=== PATIENT | male | born 1970 | race Caucasian/White ===

== ENCOUNTER 2017-09-09 14:57 | Emergency (ER) | payer OTHER ==
[2017-09-09 15:02] VITALS: BP 151/96; PULSE 80; TEMP 98.5; BMI 37.5
[2017-09-09] MEDS ORDERED: TETRACAINE 0.5% OPHTH SOLN 2 ML BOTTLE ONE (15:15)
[2017-09-09] MEDS ORDERED: FLUORESCEIN NA 1 EA STRIP ONE (15:15)
[2017-09-09] MEDS ORDERED: IBUPROFEN 600 MG TABLET (FP) PO ONE ×2 (15:49→15:53)
--- NOTE | 2017-09-09 15:52 | PDOC ---
History of Present Illness - General History Source: Patient Exam Limitations: No Limitations <Safia Ghotra - Last Filed: 09/09/17 15:46> - General History Source: Patient, Old Records Exam Limitations: No Limitations - History of Present Illness Initial Comments: 09/09/17 15:53 The patient is a 47 year old male, accompanied by family, with no significant past medical history who presents to the emergency department with right eye pain, erythema, and edema for 1 day. The patient states that on Monday he was working when he felt a pebble fly into his eye. The patient states that he is sure it was a pebble because he saw it when his daughter took it out. The patient reports feeling like there is still something in his eye and notes his irritation is exacerbated by light. The patient denies wearing contacts (he wears glasses). The patient does not have any other complaints at this time. <Octavio Lincoln - Last Filed: 09/09/17 15:54> - General Chief Complaint: Eye Problem Stated Complaint: right eye burning Past History - Past Medical History Anemia: No Asthma: No Cancer: No Cardiac Disorders: No CVA: No COPD: No CHF: No Dementia: No Diabetes: No GI Disorders: Yes (PEPTIC ULCER,PYLORIC GASTRITIS) Disorders: No HTN: Yes Hypercholesterolemia: Yes Kidney Stones: Yes Liver Disease: No Seizures: No Thyroid Disease: No - Surgical History Abdominal Surgery: No Appendectomy: No Cardiac Surgery: No Cholecystectomy: No Lung Surgery: No Neurologic Surgery: No Orthopedic Surgery: Yes (LEFT ELBOW SURGERY) - Suicide/Smoking/Psychosocial Hx Smoking History: Never smoked Have you smoked in the past 12 months: No Hx Alcohol Use: No Drug/Substance Use Hx: No Substance Use Type: None Hx Substance Use Treatment: No <Safia Ghotra - Last Filed: 09/09/17 15:46> <Octavio Lincoln - Last Filed: 09/09/17 15:54> - Past Medical History Allergies/Adverse Reactions: Allergies Allergy/AdvReac Type Severity Reaction Status Date / Time No Known Allergies Allergy Verified 09/09/17 14:58 Home Medications: Ambulatory Orders Propranolol HCl [Inderal Xl] 80 mg PO DAILY 02/04/16 Simvastatin [Zocor -] 20 mg PO DAILY 02/04/16 Omeprazole 20 mg PO DAILY 09/09/17 Polymyxin B Sulfate/Tmp [Polytrim Opthalmic Solution -] 1 drop OP Q3H #1 bottle 09/09/17 Review of Systems - Review of Systems Able to Perform ROS?: Yes Comments:: 09/09/17 15:54 GENERAL/CONSTITUTIONAL: No fever or chills. No weakness. HEAD, EYES, EARS, NOSE AND THROAT: (+) Right eye erythema, edema, and irritation /pain. No ear pain or discharge. No sore throat. GASTROINTESTINAL: No nausea, vomiting, diarrhea or constipation. GENITOURINARY: No dysuria, frequency, or change in urination. CARDIOVASCULAR: No chest pain or shortness of breath. RESPIRATORY: No cough, wheezing, or hemoptysis. MUSCULOSKELETAL: No joint or muscle swelling or pain. No neck or back pain. SKIN: No rash NEUROLOGIC: No headache, vertigo, loss of consciousness, or change in strength/ sensation. ENDOCRINE: No increased thirst. No abnormal weight change. HEMATOLOGIC/LYMPHATIC: No anemia, easy bleeding, or history of blood clots. ALLERGIC/IMMUNOLOGIC: No hives or skin allergy. <Octavio Lincoln - Last Filed: 09/09/17 15:54> *Physical Exam - Vital Signs Last Vital Signs Temp Pulse Resp BP Pulse Ox 98.5 F 80 18 151/96 97 09/09/17 14:58 09/09/17 14:58 09/09/17 14:58 09/09/17 14:58 09/09/17 14:58 <Safia Ghotra - Last Filed: 09/09/17 15:46> - Vital Signs Last Vital Signs Temp Pulse Resp BP Pulse Ox 98.5 F 80 18 151/96 97 09/09/17 14:58 09/09/17 14:58 09/09/17 14:58 09/09/17 14:58 09/09/17 14:58 - Physical Exam Comments: 09/09/17 15:54 GENERAL: Awake, alert, and fully oriented, in no acute distress HEAD: No signs of trauma EYES: (+) Right eye is injected. Green Fluorescence uptake over right cornea ( linear). No foreign body visualized. EOMI ENT: Auricles normal inspection, nares patent, Moist mucosa NECK: Normal ROM, supple, no lymphadenopathy, JVD, or masses LUNGS: Breath sounds equal, clear to auscultation bilaterally. No wheezes, and no crackles HEART: Regular rate and rhythm, normal S1 and S2, no murmurs, rubs or gallops ABDOMEN: Soft, nontender, normoactive bowel sounds. No guarding, no rebound. No masses EXTREMITIES: Normal range of motion, no edema. No clubbing or cyanosis. No cords, erythema, or tenderness NEUROLOGICAL: Normal speech SKIN: Warm, Dry, normal turgor, no rashes or lesions noted. <Octavio Lincoln - Last Filed: 09/09/17 15:54> Medical Decision Making - Medical Decision Making 09/09/17 15:46 47 yo male with foreign body sensatio in eye folllowing rock in his eye 4 days ago. has redness, irritation, light sensitivity. foreign body sensation. no contacts lenses. wears glasses. no blurry vision. on exam right eye injection. small flourescin uptake right cornnea. no foreign body visualized. visual acuity. 40/20 left, 50/20 right. ( pt wearing old glassess, has new prescription which he left at home.) plan: treat for corneal abrasion. dc polytrim opth. motrin. <Safia Ghotra - Last Filed: 09/09/17 15:46> *DC/Admit/Observation/Transfer - Discharge Dispostion Admit: No <Safia Ghotra - Last Filed: 09/09/17 15:46> - Attestations Scribe Attestion: 09/09/17 15:54 Documentation prepared by Octavio Lincoln, acting as medical office receptionist assistant for Safia Ghotra MD. <Octavio Lincoln - Last Filed: 09/09/17 15:54> Diagnosis at time of Disposition: Corneal abrasion - Discharge Dispostion Condition at time of disposition: Stable - Prescriptions Prescriptions: Polymyxin B Sulfate/Tmp [Polytrim Opthalmic Solution -] 1 drop OP Q3H #1 bottle - Referrals Referrals: Rene Gutierrez [Staff Physician] - - Patient Instructions Printed Discharge Instructions: Corneal Abrasion Additional Instructions: use polytrim drops one drop right eye every 3 hours while awake x 10 days. follow up with your doctor. you can take ibuprofen 600 mg every 8 hours as needed for pain. wear sunglassess for light sensitivity. you can follow up with Dr Gutierrez and opthomologist as needed. call monday to schedule appointment.
== END 2017-09-09 16:03 | disposition home or self-care (01) ==
LOC: FER 14:57
DX: S05.01XA Injury of conjunctiva and corneal abrasion without foreign body, right eye, initial encounter (principal); X58.XXXA Exposure to other specified factors, initial encounter; Y93.9 Activity, unspecified; Y92.9 Unspecified place or not applicable
CPT/HCPCS: 99281-25

== ENCOUNTER 2018-02-07 18:02 | Emergency (ER) | payer OTHER ==
[2018-02-07 18:15] VITALS: TEMP 97.5; BMI 39.1
[2018-02-07] MEDS ORDERED: ONDANSETRON *ODT* 4 MG TABLET SL ONE (18:47)
--- NOTE | 2018-02-07 18:48 | PDOC ---
History of Present Illness - General History Source: Patient, Old Records Exam Limitations: No Limitations - History of Present Illness Initial Comments: 02/07/18 19:06 The patient is a 47 year old male with a past medical history of hypertension, hyperlipidemia, and chronic back pain who presents to the Emergency Department with headache and stomach pain since this morning. The patient describes his headache as 10/10 in severity, originating on the right side of his head radiating posteriorly to the back of his head and inferiorly to his neck. He endorses associated nausea, dizziness, ear ringing, weakness, and decrease in appetite secondary to his headache. He notes that his head pain is exacerbated by light. He states that he took motrin today which alleviated his pain, but his pain presented again shortly after. He also reports stomach pain that onset at the same time as his headache. Patient denies dyspnea, fever, chills, cold symptoms, blurry vision,chest pain, and emesis. <Octavio Lincoln - Last Filed: 02/07/18 19:06> <Baron Barth - Last Filed: 02/10/18 08:57> - General Chief Complaint: Headache Stated Complaint: HEADACHE AND DIZZINESS H/O VERTIGO Time Seen by Provider: 02/07/18 18:45 Past History <Octavio Lincoln - Last Filed: 02/07/18 19:06> - Past Medical History Anemia: No Asthma: No Cancer: No Cardiac Disorders: No CVA: No COPD: No CHF: No Dementia: No Diabetes: No GI Disorders: Yes (PEPTIC ULCER,PYLORIC GASTRITIS) Disorders: No HTN: Yes Hypercholesterolemia: Yes Kidney Stones: Yes Liver Disease: No Seizures: No Thyroid Disease: No - Surgical History Abdominal Surgery: No Appendectomy: No Cardiac Surgery: No Cholecystectomy: No Lung Surgery: No Neurologic Surgery: No Orthopedic Surgery: Yes (LEFT ELBOW SURGERY) - Suicide/Smoking/Psychosocial Hx Smoking History: Never smoked Have you smoked in the past 12 months: No Hx Alcohol Use: No Drug/Substance Use Hx: No Substance Use Type: None Hx Substance Use Treatment: No <Baron Barth - Last Filed: 02/10/18 08:57> - Past Medical History Allergies/Adverse Reactions: Allergies Allergy/AdvReac Type Severity Reaction Status Date / Time No Known Allergies Allergy Verified 02/07/18 18:04 Home Medications: Ambulatory Orders Propranolol HCl [Inderal Xl] 80 mg PO DAILY 02/04/16 Simvastatin [Zocor -] 20 mg PO PRN 02/04/16 Acetaminophen/Caffeine/Butalb [Fioricet -] 1 tab PO Q6H PRN #20 tablet MDD 3 Ibuprofen 800 mg PO PRN 02/07/18 Ondansetron [Zofran Odt -] 4 mg SL BID PRN #10 od.tablet 02/07/18 Review of Systems - Review of Systems Able to Perform ROS?: Yes Comments:: CONSTITUTIONAL: Absent: fever, no chills, no fatigue EYES: Absent: visual changes ENT: (+) ear ringing Absent: no sore throat CARDIOVASCULAR: Absent: chest pain, no palpitations RESPIRATORY: Absent: cough, no SOB GI: (+) epigastric pain (+) Nausea Absent: no vomiting, no constipation, no diarrhea GENITOURINARY: Absent: dysuria, no frequency, no hematuria MUSCULOSKELETAL: Absent: back pain, no arthralgia, no myalgia NEURO: (+) Headache, dizziness SKIN: Absent: rash <Octavio Lincoln - Last Filed: 02/07/18 19:06> *Physical Exam - Vital Signs Last Vital Signs Temp Pulse Resp BP Pulse Ox 97.5 F L 60 16 132/56 100 02/07/18 18:03 02/07/18 18:03 02/07/18 18:03 02/07/18 18:03 02/07/18 18:03 - Physical Exam Comments: 02/07/18 19:11 GENERAL: Well-appearing, well-nourished. No apparent distress. HEENT: Normocephalic, atraumatic. PERRL, EOM intact. CARDIOVASCULAR: Normal S1, S2. Regular rate and rhythm. PULMONARY: Clear to auscultation bilaterally. ABDOMEN: Soft, non-distended, non-tender. EXTREMITIES: Normal ROM in all four extremities. No gross deformities. SKIN: Warm, dry. No rash NEUROLOGICAL: No focal neurological deficits. <Octavio Lincoln - Last Filed: 02/07/18 19:06> - Vital Signs Last Vital Signs Temp Pulse Resp BP Pulse Ox 97.5 F L 60 16 132/56 100 02/07/18 18:03 02/07/18 18:03 02/07/18 18:03 02/07/18 18:03 02/07/18 18:03 <Baron Barth - Last Filed: 02/10/18 08:57> ED Treatment Course - Medications Given in the ED: ED Medications Discontinued Medications Generic Name Dose Route Start Last Admin Trade Name Eusebia PRN Reason Stop Dose Admin Ondansetron HCl 4 mg 02/07/18 18:47 02/07/18 18:55 Zofran Odt - SL 02/07/18 18:48 4 mg ONCE ONE Administration <Octavio Lincoln - Last Filed: 02/07/18 19:06> Medical Decision Making - Medical Decision Making 02/10/18 08:55 Patient with a headache and nausea, body aches, probably viral etiology. Medication administered. CT scan pending. Signed out to Dr. Mccray pending imaging results and further evaluation and treatment 7 PM. <Baron Barth - Last Filed: 02/10/18 08:57> *DC/Admit/Observation/Transfer - Attestations Scribe Attestion: 02/07/18 19:11 Documentation prepared by Octavio Lincoln, acting as medical physics teacher for Baron Barth MD. <Octavio Lincoln - Last Filed: 02/07/18 19:06> <Baron Barth - Last Filed: 02/10/18 08:57> Diagnosis at time of Disposition: Headache - Discharge Dispostion Disposition: HOME Condition at time of disposition: Stable - Prescriptions Prescriptions: Acetaminophen/Caffeine/Butalb [Fioricet -] 1 tab PO Q6H PRN #20 tablet MDD 3 PRN Reason: Headache Ondansetron [Zofran Odt -] 4 mg SL BID PRN #10 od.tablet PRN Reason: Nausea - Referrals Referrals: Bernabe Matias MD [Staff Physician] - - Patient Instructions Printed Discharge Instructions: DI for Headache Additional Instructions: Fioricet 1 tablet every 6 hours as needed for headache Zofran ODT 4 mg up to twice a day as needed for nausea Return to ER immediately if you have severe headache or have persistent nausea/ vomiting Follow-up with neurology group (Dr. Matias)
[2018-02-07] MEDS ORDERED: ACETAMINOPHEN WITH CODEINE 300MG/30MG TABLET ONE (18:52)
[2018-02-07] MEDS ORDERED: ONDANSETRON *ODT* 4 MG TABLET ONE (18:53)
[2018-02-07] MEDS ORDERED: ACETAMINOPHEN WITH CODEINE 300MG/30MG TABLET PO ONE (19:47)
--- NOTE | 2018-02-07 20:23 | PDOC ---
*Physical Exam - Vital Signs Last Vital Signs Temp Pulse Resp BP Pulse Ox 97.5 F L 60 16 132/56 100 02/07/18 18:03 02/07/18 18:03 02/07/18 18:03 02/07/18 18:03 02/07/18 18:03 ED Treatment Course - Medications Given in the ED: ED Medications Discontinued Medications Generic Name Dose Route Start Last Admin Trade Name Freq PRN Reason Stop Dose Admin Acetaminophen/Codeine Phosphate 1 tab 02/07/18 19:47 02/07/18 18:55 Tylenol # 3 - PO 02/07/18 19:48 1 tab ONCE ONE Administration Ondansetron HCl 4 mg 02/07/18 18:47 02/07/18 18:55 Zofran Odt - SL 02/07/18 18:48 4 mg ONCE ONE Administration Progress Note - Progress Note Progress Note: Care of this patient received from Dr. Cates. Patient feels significantly better after Tylenol with codeine/Zofran Head CT shows no evidence of acute intracranial process. Patient will be discharged with prescription for Fioricet to be taken up to twice a day as needed for headache and Zofran ODT for nausea. He has not been seen by a neurologist for his headaches and referral information for Dr. Matias group will be given to him. Patient should return to the emergency room if he has severe, persistent pain or develops nausea/vomiting or lightheadedness *DC/Admit/Observation/Transfer Diagnosis at time of Disposition: Headache Qualifiers: Headache type: tension-type Headache chronicity pattern: acute headache Intractability: not intractable Qualified Code(s): G44.209 - Tension-type headache, unspecified, not intractable - Discharge Dispostion Disposition: HOME Condition at time of disposition: Stable - Prescriptions Prescriptions: Acetaminophen/Caffeine/Butalb [Fioricet -] 1 tab PO Q6H PRN #20 tablet MDD 3 PRN Reason: Headache Ondansetron [Zofran Odt -] 4 mg SL BID PRN #10 od.tablet PRN Reason: Nausea - Referrals Referrals: Bernabe Matias MD [Staff Physician] - - Patient Instructions Printed Discharge Instructions: DI for Headache Additional Instructions: Fioricet 1 tablet every 6 hours as needed for headache Zofran ODT 4 mg up to twice a day as needed for nausea Return to ER immediately if you have severe headache or have persistent nausea/ vomiting Follow-up with neurology group (Dr. Matias) - Post Discharge Activity
[2018-02-07 20:46] VITALS: BP 149/99; PULSE 59
== END 2018-02-07 20:47 | disposition home or self-care (01) ==
LOC: FER 18:02
DX: G44.209 Tension-type headache, unspecified, not intractable (principal)
CPT/HCPCS: 70450-TC; 99283-25; Q0162

== ENCOUNTER 2019-06-17 00:34 | Observation (INO) | payer OTHER ==
--- NOTE | 2019-06-17 00:57 | PDOC ---
History of Present Illness - General Chief Complaint: Chest Pain Stated Complaint: CHEST PAIN Time Seen by Provider: 06/17/19 00:37 History Source: Patient Exam Limitations: No Limitations - History of Present Illness Initial Comments: 06/17/19 00:52 This is a 49-year-old male who comes in complaining of several hours of substernal chest pain this evening. However patient said that he has had intermittent chest pain for the last couple of days. Patient said sometimes it is associated with some nausea and diaphoresis. Patient said this evening it was associated with some radiation down his inner arm as well as some shortness of breath. Patient said that the symptoms occurred while at rest. Patient denies history of similar pain other than within the last few days. Patient said that he did have a cardiac evaluation a number years ago however nothing within the last few years. Patient has a number risk factors including hypertension, high cholesterol and obesity. Patient denies any pain at this time or any associated symptoms. Patient does not take an aspirin a day. Allergies: as per nursing notes Past Medical History: none Social history: Lives with family. No smoking. No alcohol. No illicit drugs. Surgical history: None General: No fevers or chills, no weakness, no weight loss HEENT: No change in vision. No sore throat,. No ear pain CardioVascular: + chest discomfort. No shortness of breath Respiratory:No cough, or wheezing. Gastrointestinal: no nausea, vomiting, diarrhea or constipation, No rectal bleeding Genitourinary: No dysuria, hematuria, or frequency Musculoskeletal: No joint or muscle pain or swelling Neurologic: No headache, vertigo, dizziness or loss of consciousness Psychiatric: nor depression Skin: No rashes or easy bruising Endocrine: no increased thirst or abnormal weight change Allergic: no skin or latex allergy All other systems reviewed and normal Exam: General: Well-nourished well-developed individual, no acute distress HEENT: Throat: Normal, tonsils normal, no erythema or exudate Neck: Supple, no meningeal signs, no lymphadenopathy Eyes::Pupils equal reactive and round, extraocular motion intact Chest: Nontender to palpation Cardiac: S1-S2 normal, regular rate and rhythm, no murmurs rubs or gallops Respiratory: Lungs clear to auscultation bilateral Abdomen: Soft, nondistended, normal bowel sounds, there is no tenderness on palpation diffusely Extremities: Warm, dry, no cyanosis, clubbing, or edema Skin: No rashes Neuro: Alert and oriented x3, CN II - XII intact, nonfocal exam with normal strength, normal sensation, normal reflexes, normal gait, Psych: Normal mood and affect Assessment and plan: This is a 49-year-old male with multiple cardiac risk factors who comes in complaining of intermittent chest pain 2 days. Patient is pain-free at this time. Workup initiated including CBC, comp, chest x-ray and cardiac enzymes and EKG. Patient given aspirin. Patient's heart score is 4 so he will be admitted to an observation bed Past History - Past Medical History Allergies/Adverse Reactions: Allergies Allergy/AdvReac Type Severity Reaction Status Date / Time No Known Allergies Allergy Verified 06/17/19 00:49 Home Medications: Ambulatory Orders Simvastatin [Zocor -] 20 mg PO PRN 02/04/16 propRANOLol HCL [Inderal Xl] 80 mg PO DAILY 02/04/16 Anemia: No Asthma: No Cancer: No Cardiac Disorders: No CVA: No COPD: No CHF: No Dementia: No Diabetes: No GI Disorders: Yes (PEPTIC ULCER,PYLORIC GASTRITIS) Disorders: No HTN: Yes Hypercholesterolemia: Yes Kidney Stones: Yes Liver Disease: No Seizures: No Thyroid Disease: No - Surgical History Abdominal Surgery: No Appendectomy: No Cardiac Surgery: No Cholecystectomy: No Lung Surgery: No Neurologic Surgery: No Orthopedic Surgery: Yes (LEFT ELBOW SURGERY) - Suicide/Smoking/Psychosocial Hx Smoking History: Never smoked Have you smoked in the past 12 months: No Hx Alcohol Use: No Drug/Substance Use Hx: No Substance Use Type: None Hx Substance Use Treatment: No Cardiac Specific PMH - Complaint Specific PMHX Pacemaker: No *Physical Exam - Vital Signs Last Vital Signs Temp Pulse Resp BP Pulse Ox 98.3 F 58 L 16 133/84 96 06/17/19 00:50 06/17/19 00:50 06/17/19 00:50 06/17/19 00:50 06/17/19 00:50 Heart Score/ECG Review - History History: Moderately suspicious - Electrocardiogram EKG: Normal - Age Age: 45-65 - Risk Factors Risk Factors Heart Score: Yes Hx Hypercholesterolemia, Yes Hx Hypertension, Yes Hx Obesity Based on the list above the patient has:: >/=3 risk factors or Hx atherosclerotic disease - Troponin Troponin: </= normal limit - Score Heart Score - Total: 4 ED Treatment Course - LABORATORY CBC & Chemistry Diagram: 06/17/19 01:10 06/17/19 01:10 - ADDITIONAL ORDERS Additional order review: Laboratory Results 06/17/19 06/17/19 01:10 01:10 Sodium 141 Potassium 3.8 Chloride 105 Carbon Dioxide 29 Anion Gap 7 L BUN 18.4 H Creatinine 1.3 Est GFR (CKD-EPI)AfAm 75.31 Est GFR (CKD-EPI)NonAf 64.98 Random Glucose 103 Calcium 8.7 Total Bilirubin 0.5 AST 60 H ALT 135 H Alkaline Phosphatase 81 Creatine Kinase 188 Creatine Kinase Index 0.5 CK-MB (CK-2) 1.0 Troponin I < 0.03 Total Protein 6.8 Albumin 3.6 06/17/19 01:10 RBC 4.86 MCV 89.6 MCHC 34.0 RDW 13.8 MPV 9.8 Neutrophils % 45.0 Lymphocytes % 43.6 H Monocytes % 7.6 Eosinophils % 3.0 Basophils % 0.8 - RADIOLOGY Radiology Studies Ordered: Category Date Time Status CHEST X-RAY PORTABLE* [RAD] Stat Radiology 06/17/19 00:58 Taken - Medications Given in the ED: ED Medications Discontinued Medications Generic Name Dose Route Start Last Admin Trade Name Freq PRN Reason Stop Dose Admin Aspirin 162 mg 06/17/19 00:59 06/17/19 01:03 Asa - PO 06/17/19 01:00 162 mg ONCE ONE Administration *DC/Admit/Observation/Transfer Diagnosis at time of Disposition: Chest pain at rest - Discharge Dispostion Condition at time of disposition: Stable Decision to Admit order: Yes - Referrals - Patient Instructions - Post Discharge Activity
[2019-06-17] MEDS ORDERED: ASPIRIN 81 MG CHEWABLE TABLETS PO ONE (00:59)
[2019-06-17] MEDS ORDERED: ASPIRIN 81 MG CHEWABLE TABLETS ONE (01:04)
[2019-06-17 01:50] LABS: BASO % 0.8 % (0-2.0); HEMATOCRIT 43.6 % (35.4-49); HEMOGLOBIN 14.8 GM/dL (11.7-16.9); LYMPH % 43.6 % (8-40); MCH 30.5 pg (25.7-33.7); MEAN CELL VOLUME 89.6 fl (80-96); MEAN PLT VOLUME 9.8 fl (7.5-11.1); MONO % 7.6 % (3.8-10.2); PLATELET COUNT 169 K/MM3 (134-434); RBC 4.86 M/mm3 (4.00-5.60); RDW 13.8 % (11.9-15.9); WHITE BLOOD COUNT 8.1 K/mm3 (4.0-10.0)
[2019-06-17 02:05] LABS: ALBUMIN 3.6 g/dl (3.4-5.0); BILIRUBIN,TOTAL 0.5 mg/dL (0.2-1); BLOOD UREA NITROGEN 18.4 mg/dL (7-18); CALCIUM 8.7 mg/dL (8.5-10.1); CREATININE 1.3 mg/dL (0.55-1.3); POTASSIUM 3.8 mmol/L (3.5-5.1); TOT PROT 6.8 g/dl (6.4-8.2)
[2019-06-17 03:36] VITALS: BMI 42.1
--- NOTE | 2019-06-17 08:47 | HP ---
CHIEF COMPLAINT: Chest pain PCP: HISTORY OF PRESENT ILLNESS: 49 year-old male with a PMH significant for HTN, HLD, kidney stones, peptic ulcer disease, GERD, chronic back pain, and obesity. He presented to the ED for evaluation of chest pain. Patient states he has had intermittent left-sided chest pain for 2-4 days. The pain sometimes feels like a cramp, sometimes feels like pressure. Sometimes he thinks the pain is similar to his episodes of GERD. The pain has been associated at times with SOB, nausea, and diaphoresis. Yesterday he laid down to go to bed and felt SOB. This prompted him to come to the ED. Patient denies lightheadedness, palpitations, decreased exercise tolerance, and lower extremity edema. He denies upper respiratory symptoms. He denies fever, sweats, chills. 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 Smoking: never Alcohol: no Drugs: no Family History: Mother alive with HTN; Father alive with HTN; 7 brothers, 2 sisters all a&w; 4 children a&w Allergies No Known Allergies Allergy (Verified 06/17/19 00:49) HOME MEDICATIONS: Home Medications Medication Instructions Recorded Simvastatin [Zocor -] 20 mg PO PRN 02/04/16 propRANOLol HCL [Inderal Xl] 80 mg PO DAILY 02/04/16 REVIEW OF SYSTEMS CONSTITUTIONAL: Absent: fever, chills, diaphoresis, generalized weakness, malaise, loss of appetite, weight change HEENT: Absent: rhinorrhea, nasal congestion, throat pain, throat swelling, difficulty swallowing, mouth swelling, ear pain, eye pain, visual changes CARDIOVASCULAR: +chest pain/pressure, SOB, diaphoresis Absent: syncope, palpitations, irregular heart rate, lightheadedness, peripheral edema RESPIRATORY: Absent: cough, shortness of breath, dyspnea with exertion, orthopnea, wheezing, stridor, hemoptysis GASTROINTESTINAL: Absent: abdominal pain, abdominal distension, nausea, vomiting, diarrhea, constipation, melena, hematochezia GENITOURINARY: Absent: dysuria, frequency, urgency, hesitancy, hematuria, flank pain, genital pain MUSCULOSKELETAL: Absent: myalgia, arthralgia, joint swelling, back pain, neck pain SKIN: Absent: rash, itching, pallor HEMATOLOGIC/IMMUNOLOGIC: Absent: easy bleeding, easy bruising, lymphadenopathy, frequent infections ENDOCRINE: Absent: unexplained weight gain, unexplained weight loss, heat intolerance, cold intolerance NEUROLOGIC: Absent: headache, focal weakness or paresthesias, dizziness, unsteady gait, seizure, mental status changes, bladder or bowel incontinence PSYCHIATRIC: Absent: anxiety, depression, suicidal or homicidal ideation, hallucinations. PHYSICAL EXAMINATION Vital Signs - 24 hr 06/17/19 06/17/19 06/17/19 00:50 02:19 02:41 Temperature 98.3 F Pulse Rate 58 L Pulse Rate [ 60 Left] Respiratory 16 18 18 Rate Blood Pressure 133/84 Blood Pressure 115/79 [Left] O2 Sat by Pulse 96 97 97 Oximetry (%) 06/17/19 06/17/19 06:38 06:39 Temperature 98.1 F Pulse Rate 68 Pulse Rate [ Left] Respiratory 19 Rate Blood Pressure 130/70 Blood Pressure [Left] O2 Sat by Pulse 100 Oximetry (%) GENERAL: Awake, alert, and fully oriented, in no acute distress. HEAD: Normal with no signs of trauma. EYES: Pupils equal, round and reactive to light, extraocular movements intact, sclera anicteric, conjunctiva clear. No lid lag. EARS, NOSE, THROAT: Ears normal, nares patent, oropharynx clear without exudates. Moist mucous membranes. NECK: Normal range of motion, supple without lymphadenopathy, JVD, or masses. LUNGS: Breath sounds equal, clear to auscultation bilaterally. No wheezes, and no crackles. No accessory muscle use. HEART: Regular rate and rhythm, S1 and S2 ABDOMEN: Soft, nontender, not distended MUSCULOSKELETAL: Normal range of motion at all joints. No bony deformities or tenderness. No CVA tenderness. UPPER EXTREMITIES: 2+ pulses, warm, well-perfused. No cyanosis. No clubbing. No peripheral edema. LOWER EXTREMITIES: 2+ pulses, warm, well-perfused. No calf tenderness. No peripheral edema. NEUROLOGICAL: Cranial nerves II-XII intact. Normal speech. Laboratory Results - last 24 hr 06/17/19 06/17/19 06/17/19 01:10 01:10 01:10 WBC 8.1 RBC 4.86 Hgb 14.8 Hct 43.6 MCV 89.6 MCH 30.5 MCHC 34.0 RDW 13.8 Plt Count 169 MPV 9.8 Absolute Neuts (auto) 3.6 Neutrophils % 45.0 Lymphocytes % 43.6 H Monocytes % 7.6 Eosinophils % 3.0 Basophils % 0.8 Nucleated RBC % 0 Sodium 141 Potassium 3.8 Chloride 105 Carbon Dioxide 29 Anion Gap 7 L BUN 18.4 H Creatinine 1.3 Est GFR (CKD-EPI)AfAm 75.31 Est GFR (CKD-EPI)NonAf 64.98 Random Glucose 103 Calcium 8.7 Total Bilirubin 0.5 AST 60 H ALT 135 H Alkaline Phosphatase 81 Creatine Kinase 188 Creatine Kinase Index 0.5 CK-MB (CK-2) 1.0 Troponin I < 0.03 Total Protein 6.8 Albumin 3.6 ASSESSMENT/PLAN: 49 year-old male with a PMH significant for HTN, HLD, kidney stones, peptic ulcer disease, GERD, chronic back pain, and obesity. Chest pain --troponins neg x 2, third pending --CXR unremarkble --ECG: no acute ischemic event --echo pending --continue ASA, statin --takes propranolol XL 80 mg daily but bradycardic --ASA, statin --cardiology consult Hypertension --BP stable, holding propranolol for bradycardia Hyperlipidemia --continue statin Kidney stones --stable Peptic ulcer disease GERD --protonix Chronic back pain --stable FEN Fluids: PO intake adequate Electrolytes: replete as indicated Nutrition: low sodium DVT prophylaxis: lovenox Dispo: continues to require observation. Full code. Visit type - Emergency Visit Emergency Visit: Yes ED Registration Date: 06/17/19 Care time: The patient presented to the Emergency Department on the above date and was hospitalized for further evaluation of their emergent condition. - New Patient This patient is new to me today: Yes Date on this admission: 06/17/19 - Critical Care Critical Care patient: No
--- NOTE | 2019-06-17 12:25 | CON.CARD ---
Consult Consult Specialty:: Cardiology Referred by:: Matilda Schlutz NP Reason for Consultation:: Chest pain - History of Present Illness Chief Complaint: Chest pain History of Present Illness: 49 year-old male with a PMH significant for HTN, HLD, kidney stones, chronic back pain, and obesity. He presented to the ED for evaluation of non-exertional left sided chest cramping radiating down left arm associated with SOB, nausea, and diaphoresis, currently asymptomatic. Allergies: as per nursing notes Past Medical History: none Social history: Lives with family. No smoking. No alcohol. No illicit drugs. Surgical history: None - History Source History Provided By: Patient Limitations to Obtaining History: No Limitations - Alcohol/Substance Use Hx Alcohol Use: No - Smoking History Smoking history: Never smoked Have you smoked in the past 12 months: No Home Medications - Allergies Allergies/Adverse Reactions: Allergies Allergy/AdvReac Type Severity Reaction Status Date / Time No Known Allergies Allergy Verified 06/17/19 00:49 - Home Medications Home Medications: Ambulatory Orders Simvastatin [Zocor -] 20 mg PO PRN 02/04/16 propRANOLol HCL [Inderal Xl] 80 mg PO DAILY 02/04/16 Review of Systems - Review of Systems Cardiovascular: reports: Chest Pain Respiratory: reports: SOB Vital Signs: Vital Signs Temperature 98.1 F 06/17/19 06:38 Pulse Rate 68 06/17/19 06:38 Respiratory Rate 19 06/17/19 09:18 Blood Pressure 130/70 06/17/19 06:38 O2 Sat by Pulse Oximetry (%) 100 06/17/19 09:18 Constitutional: Yes: No Distress, Calm Neck: Yes: Supple Respiratory: Yes: Regular, CTA Bilaterally Gastrointestinal: Yes: Normal Bowel Sounds, Soft, Abdomen, Obese Cardiovascular: Yes: Regular Rate and Rhythm JVD: No Carotid Bruit: No Heart Sounds: Yes: S1, S2 Edema: No - Other Data Labs, Other Data: CBC, BMP 06/17/19 01:10 06/17/19 01:10 Troponin, BNP 06/17/19 06/17/19 01:10 07:00 Troponin I < 0.03 < 0.03 Troponin, BNP 06/17/19 06/17/19 01:10 07:00 Troponin I < 0.03 < 0.03 NSR @ 61 w/o ST-T changes Tele: SR Ejection Fraction %: LVEF > or = 40 % Imaging - Results Chest X-ray: Report Reviewed (NAD) Problem List - Problems (1) Hypertension Code(s): I10 - ESSENTIAL (PRIMARY) HYPERTENSION Qualifiers: Hypertension type: essential hypertension Qualified Code(s): I10 - Essential (primary) hypertension (2) Hyperlipidemia Code(s): E78.5 - HYPERLIPIDEMIA, UNSPECIFIED Qualifiers: Hyperlipidemia type: pure hypercholesterolemia Qualified Code(s): E78.00 - Pure hypercholesterolemia, unspecified; E78.0 - Pure hypercholesterolemia (3) Chest pain at rest Code(s): R07.9 - CHEST PAIN, UNSPECIFIED Assessment/Plan 1. Chest pain syndrome r/o CAD 2. Hypertension 3. Hyperlipidemia P:1. Ruling out for NH 2. F/u echo already ordered, ETT to r/o ischemia (hold Inderal prior to test) 3. Continue ASA 81 qd, Inderal LA 60 qd and Zocor 20 qhs as hemodynamic tolerate 4. Thank you for consultative opportunity
[2019-06-17] MEDS ORDERED: PANTOPRAZOLE 40 MG TABLET (FP) PO SCH (13:45)
[2019-06-17 14:09] VITALS: BP 127/79; PULSE 62; TEMP 99
--- NOTE | 2019-06-17 14:14 | ECHO ---
Name: EVELYNE CHRISTOPHER Exam:Adult Echocardiogram Study Date: 06/17/2019 12:52 PM Age: 49 yrs Reason For Study: Chest pain Height: 67 in Weight: 256 lb BSA: 2.2 m2 MMode/2D Measurements & Calculations IVSd: 1.1 cm Ao root diam: 3.0 cm LVIDd: 3.5 cm LA dimension: 3.0 cm LVIDs: 2.7 cm LVPWd: 1.1 cm EDV(Teich): 51.8 ml LVOT diam: 2.0 cm ESV(Teich): 26.4 ml Doppler Measurements & Calculations MV E max toni: 75.9 cm/sec MV A max toni: 61.2 cm/sec MV dec slope: 494.1 cm/sec2 MV E/A: 1.2 Ao V2 max: 113.8 cm/sec LV V1 max P.9 mmHg Ao max P.2 mmHg LV V1 max: 99.0 cm/sec JUAN(V,D): 2.7 cm2 PA V2 max: 106.0 cm/sec PI end-d toni: 100.8 cm/sec PA max P.5 mmHg Procedure A complete two-dimensional transthoracic echocardiogram was performed (2D, M-mode, Doppler and color flow Doppler). Left Ventricle The left ventricle is normal in size. Left ventricular systolic function is normal. Ejection Fraction = 60- 65%. No regional wall motion abnormalities noted. Right Ventricle The right ventricle is normal size. The right ventricular systolic function is normal. Atria The left atrial size is normal. Right atrial size is normal. Mitral Valve The mitral valve is normal in structure and function. There is no mitral regurgitation noted. Tricuspid Valve The tricuspid valve is normal in structure and function. No tricuspid regurgitation. Aortic Valve The aortic valve is normal in structure and function. No aortic regurgitation is present. Pulmonic Valve The pulmonic valve is not well visualized. Great Vessels The aortic root is normal size. Pericardium/Pleura There is no pericardial effusion. Interpretation Summary The left ventricle is normal in size. Left ventricular systolic function is normal. No regional wall motion abnormalities noted. Ejection Fraction = 60-65%. The right ventricular systolic function is normal. The left atrial size is normal. Right atrial size is normal. No significant valvular regurgitations are seen There is no pericardial effusion. Previous study is not available for comparison Herbert Schultz MD 06/17/2019 02:14 PM
[2019-06-17] MEDS ORDERED: PT OWN MED DRAWER 7, Y5N ONE (15:50)
--- NOTE | 2019-06-17 16:09 | DS ---
Physical Exam: SUBJECTIVE: Patient seen and examined. No further episodes of chest pain or pressure. OBJECTIVE: Vital Signs Period Temp Pulse Resp BP Sys/Hung Pulse Ox Last 24 Hr 98.1 F-99.0 F 58-68 16-20 115-133/70-84 96-100 PHYSICAL EXAM GENERAL: The patient is awake, alert, and fully oriented, in no acute distress. LUNGS: Breath sounds equal, clear to auscultation bilaterally, no wheezes, no crackles, no accessory muscle use. HEART: Regular rate and rhythm, S1, S2 ABDOMEN: Soft, nontender, nondistended EXTREMITIES: 2+ pulses, warm, well-perfused, no edema. NEUROLOGICAL: Cranial nerves II through XII grossly intact. Normal speech, gait not observed. LABS Laboratory Results - last 24 hr 06/17/19 06/17/19 06/17/19 01:10 01:10 01:10 WBC 8.1 RBC 4.86 Hgb 14.8 Hct 43.6 MCV 89.6 MCH 30.5 MCHC 34.0 RDW 13.8 Plt Count 169 MPV 9.8 Absolute Neuts (auto) 3.6 Neutrophils % 45.0 Lymphocytes % 43.6 H Monocytes % 7.6 Eosinophils % 3.0 Basophils % 0.8 Nucleated RBC % 0 Sodium 141 Potassium 3.8 Chloride 105 Carbon Dioxide 29 Anion Gap 7 L BUN 18.4 H Creatinine 1.3 Est GFR (CKD-EPI)AfAm 75.31 Est GFR (CKD-EPI)NonAf 64.98 Random Glucose 103 Calcium 8.7 Magnesium Total Bilirubin 0.5 AST 60 H ALT 135 H Alkaline Phosphatase 81 Creatine Kinase 188 Creatine Kinase Index 0.5 CK-MB (CK-2) 1.0 Troponin I < 0.03 Total Protein 6.8 Albumin 3.6 TSH 06/17/19 06/17/19 06/17/19 07:00 07:00 13:20 WBC RBC Hgb Hct MCV MCH MCHC RDW Plt Count MPV Absolute Neuts (auto) Neutrophils % Lymphocytes % Monocytes % Eosinophils % Basophils % Nucleated RBC % Sodium Potassium Chloride Carbon Dioxide Anion Gap BUN Creatinine Est GFR (CKD-EPI)AfAm Est GFR (CKD-EPI)NonAf Random Glucose Calcium Magnesium 2.0 Total Bilirubin AST ALT Alkaline Phosphatase Creatine Kinase Creatine Kinase Index CK-MB (CK-2) Troponin I < 0.03 < 0.03 Total Protein Albumin TSH 2.06 D HOSPITAL COURSE: Date of Admission:06/17/19 Date of Discharge: 06/17/19 Prehospital course 49 year-old male with a PMH significant for HTN, HLD, kidney stones, peptic ulcer disease, GERD, chronic back pain, and obesity. He presented to the ED for evaluation of chest pain. Patient states he has had intermittent left-sided chest pain for 2-4 days. The pain sometimes feels like a cramp, sometimes feels like pressure. Sometimes he thinks the pain is similar to his episodes of GERD. The pain has been associated at times with SOB, nausea, and diaphoresis. Yesterday he laid down to go to bed and felt SOB. This prompted him to come to the ED. Patient denies lightheadedness, palpitations, decreased exercise tolerance, and lower extremity edema. He denies upper respiratory symptoms. He denies fever, sweats, chills. ER course (1) Troponin neg x 1 (2) CXR unremarkable (3) ECG: no sign of acute ischemic event Subsequent hospital course Chest pain --troponins neg x 3 --CXR unremarkble --ECG: no acute ischemic event --echo: LV normal; EF 60-65%; RV normal; no valvular pathology --was taking propranolol XL 80 mg daily at home but bradycardic in 50s on telemetry; recommended lowering dose to 60mg daily on discharge --seen and evaluated by cardiology Hypertension --BP stable Hyperlipidemia --continued statin Minutes to complete discharge: 35 Discharge Summary Reason For Visit: CHEST PAIN Current Active Problems Chest pain at rest (Acute) Hyperlipidemia (Acute) Hypertension (Acute) Condition: Stable - Instructions Diet, Activity, Other Instructions: During your hospital stay your heart rate was observed to be mildly slow, called bradycardia (rate in 50s). You were seen by a asbestos pipe supervisor who recommended you lower your dose of propranolol to 60mg daily. A new prescription has been sent to your pharmacy. It is recommended you take this lower dose until you follow up with your primary care provider, Dr. Hall. You should see Dr. Hall within 1 week of your discharge to have your blood pressure and heart rate checked. Return to the emergency department for any new or worsening symptoms. Referrals: Irving Hall MD [Staff Physician] - Disposition: HOME - Home Medications Comprehensive Discharge Medication List: Ambulatory Orders Simvastatin [Zocor -] 20 mg PO PRN 02/04/16 propRANOLol HCL [Inderal LA -] 60 mg PO DAILY #30 capsule.er 06/17/19 This patient is new to me today: Yes Date on this admission: 06/17/19 Emergency Visit: Yes ED Registration Date: 06/17/19 Care time: The patient presented to the Emergency Department on the above date and was hospitalized for further evaluation of their emergent condition. Critical Care patient: No - Discharge Referral Referred to [facility] No
[2019-06-17] MEDS ORDERED: ATORVASTATIN CA 10 MG TABLET (FP) PO SCH (22:00)
[2019-06-18] MEDS ORDERED: ENOXAPARIN NA (PORCINE) 40 MG/0.4 ML DISP.SYRIN SQ SCH (10:00)
[2019-06-18] MEDS ORDERED: ASPIRIN 81 MG CHEWABLE TABLETS PO SCH (10:00)
--- NOTE | 2019-06-18 15:45 | EKG ---
Test Reason : Blood Pressure : / mmHG Vent. Rate : 061 BPM Atrial Rate : 061 BPM P-R Int : 152 ms QRS Dur : 086 ms QT Int : 418 ms P-R-T Axes : -10 016 013 degrees QTc Int : 420 ms NORMAL SINUS RHYTHM NORMAL ECG WHEN COMPARED WITH ECG OF 16-JUN-2011 11:49, NO SIGNIFICANT CHANGE WAS FOUND Confirmed by MD BOB, REY ([id number]) on 06/18/2019 3:44:48 PM Referred By: Mauri Rich Confirmed By:REY ROJAS MD
--- NOTE | 2019-06-19 07:51 | TRE ---
Protocol Name : LENORE Max Work Load (METS*10) : 119 Time In Exercise Phase : 00:10:00 Max. Systolic BP : 192 mmHg Max Diastolic BP : 94 mmHg Max Heart Rate : 155 BPM Max Predicted Heart Rate : 173 BPM Attending Physician : GLEN Reason For Termination : Target Heart Rate Achieved Reason for Test : CP Stress Protocol : LENORE Rest HR : 72 BPM PeakEx METs : 11.9 METS Arrhythmias : No Arrhythmias Resting ECG : Normal Recovery ECG Response (OLD) : Overall Impression : Normal stress test Chest Pain : No Chest Pain HR Response To Exercise : Normal Overall HR Response To Exercise BP Response To Exercise : Resting Hypertension with Appropriate Response Functional Capacity : Above Average (> 20%) Diagnosis : 1. NEGATIVE STRESS TEST 2. APPROPRIATE BLOOD PRESSURE RESPONSE 3. PATIENT EXERCISED 10 MIN INTO STAGE 4 LENORE PROTOCOL AND ACHIEVED 89% IF MPTHR 4. NO SIGNIFICANT ST-T ABNORMALITIES Confirmed by BALDEV ACRROLL MD ([id number]) on 06/17/2019 3:28:37 PM
== END 2019-06-17 16:12 | disposition home or self-care (01) ==
LOC: FER 00:34 → FM/S 02:20 → UNDOADMOB 02:41
PROVIDERS: ADMIT Internal Medicine; ATTEND Nurse Practitioner Acute Care
DX: R07.9 Chest pain, unspecified (principal); I10 Essential (primary) hypertension; E78.5 Hyperlipidemia, unspecified; K21.9 Gastro-esophageal reflux disease without esophagitis; M54.9 Dorsalgia, unspecified; G89.29 Other chronic pain; E66.9 Obesity, unspecified; Z68.41 Body mass index [BMI] 40.0-44.9, adult; Z87.11 Personal history of peptic ulcer disease
CPT/HCPCS: 36415; 71045-TC-FY; 80053; 82550; 82553; 83735; 84443; 84484; 85025; 93005; 93017; 93018; 93306-TC; 99285-25; G0378

== ENCOUNTER 2020-10-21 05:30 | Day surgery (SDC) | payer OTHER ==
[2020-10-20 12:46] VITALS: BMI 39.7
[2020-10-21 11:09] VITALS: TEMP 96.8
[2020-10-21 12:26] VITALS: BP 126/77; PULSE 50
== END 2020-10-21 12:28 | disposition home or self-care (01) ==
LOC: JASU-ENDO 05:30
PROVIDERS: ATTEND Internal Medicine Gastroenterology
PROC: 0DBN8ZX Excision of Sigmoid Colon, Via Natural or Artificial Opening Endoscopic, Diagnostic (ICD-10-PCS; 2020-10-21)
PROC: 0DBK8ZX Excision of Ascending Colon, Via Natural or Artificial Opening Endoscopic, Diagnostic (ICD-10-PCS; principal; 2020-10-21 10:00)
DX: Z12.11 Encounter for screening for malignant neoplasm of colon (principal); K92.1 Melena; K64.8 Other hemorrhoids; D12.2 Benign neoplasm of ascending colon; D12.5 Benign neoplasm of sigmoid colon
CPT/HCPCS: 88305-TC

== ENCOUNTER 2020-12-24 04:48 | Day surgery (SDC) | payer OTHER ==
[2020-12-17 08:54] VITALS: BMI 38.0
[2020-12-24 11:07] VITALS: TEMP 98.2
[2020-12-24 12:13] VITALS: BP 143/72; PULSE 50
== END 2020-12-24 12:35 | disposition home or self-care (01) ==
LOC: JASU-ENDO 04:48
PROVIDERS: ATTEND Internal Medicine Gastroenterology
PROC: 0DB78ZX Excision of Stomach, Pylorus, Via Natural or Artificial Opening Endoscopic, Diagnostic (ICD-10-PCS; principal; 2020-12-24 10:00)
DX: K29.50 Unspecified chronic gastritis without bleeding (principal); K44.9 Diaphragmatic hernia without obstruction or gangrene; K31.9 Disease of stomach and duodenum, unspecified; K21.9 Gastro-esophageal reflux disease without esophagitis
CPT/HCPCS: 88305-TC; 88342-TC

== ENCOUNTER 2022-09-21 01:50 | Emergency (ER) | payer MEDICARE, OTHER ==
[2022-09-21 01:58] VITALS: BP 134/88; PULSE 56; RESP 16; TEMP 97.8; BMI 39.9
== END 2022-09-21 02:12 | disposition home or self-care (01) ==
LOC: FER 01:50
DX: F41.9 Anxiety disorder, unspecified (principal)
CPT/HCPCS: 99281-25

== ENCOUNTER 2024-02-08 22:18 | Emergency (ER) | payer MEDICARE, OTHER ==
[2024-02-08 22:28] VITALS: TEMP 98.4; BMI 39.9
[2024-02-08] MEDS ORDERED: CYCLOBENZAPRINE HCL 5 MG TABLET ONE (23:36)
[2024-02-08] MEDS ORDERED: ACETAMINOPHEN 325 MG TABLET (FP) ONE (23:36)
[2024-02-08] MEDS: ACETAMINOPHEN 500 MG TABLET (FP) PO ONE (23:38)
[2024-02-08] MEDS: CYCLOBENZAPRINE HCL 5 MG TABLET PO ONE (23:41)
[2024-02-08 23:45] LABS: BASO % 0.8 % (0-2.0); EOS % 2.9 % (0-4.5); HEMATOCRIT 43.7 % (35.4-49); HEMOGLOBIN 14.5 GM/dL (11.7-16.9); LYMPH % 34.2 % (8-40); MCH 29.6 pg (25.7-33.7); MCHC 33.1 g/dl (32.0-35.9); MEAN CELL VOLUME 89.5 fl (80-96); MEAN PLT VOLUME 9.3 fl (7.5-11.1); MONO % 8.1 % (3.8-10.2); PLATELET COUNT 169 10^3/uL (134-434); RBC 4.89 M/mm3 (4.00-5.60); RDW 13.6 % (11.9-15.9); WHITE BLOOD COUNT 8.6 K/mm3 (4.0-10.0)
[2024-02-09 00:04] LABS: POTASSIUM 4.8 mmol/L (3.5-5.1)
[2024-02-09 00:06] LABS: ALBUMIN 3.2 g/dl (3.4-5.0); BLOOD UREA NITROGEN 14.5 mg/dL (7-18); CALCIUM 8.9 mg/dL (8.5-10.1)
[2024-02-09 00:11] LABS: BILIRUBIN,TOTAL 0.4 mg/dL (0.2-1); TOT PROT 6.4 g/dl (6.4-8.2)
[2024-02-09 00:25] VITALS: BP 140/88; PULSE 62; RESP 16
[2024-02-09] MEDS ORDERED: CYCLOBENZAPRINE HCL 5 MG TABLET PO ONE (23:30)
== END 2024-02-09 00:25 | disposition home or self-care (01) ==
LOC: JER 22:18
DX: K62.5 Hemorrhage of anus and rectum (principal)
CPT/HCPCS: 36415; 80053; 82272; 85025; 99283-25

== ENCOUNTER 2024-05-14 04:26 | Day surgery (SDC) | payer MEDICARE, OTHER ==
[2024-05-13 13:58] VITALS: BMI 43.0
[2024-05-14 13:38] VITALS: TEMP 98
[2024-05-14 13:43] VITALS: BP 90/67; PULSE 71; RESP 20
== END 2024-05-14 12:00 | disposition home or self-care (01) ==
LOC: JASU-ENDO 04:26
PROVIDERS: ATTEND Internal Medicine Gastroenterology
PROC: 0DBN8ZX Excision of Sigmoid Colon, Via Natural or Artificial Opening Endoscopic, Diagnostic (ICD-10-PCS; principal; 2024-05-14 10:20)
DX: K64.8 Other hemorrhoids (principal); D12.5 Benign neoplasm of sigmoid colon; K57.30 Diverticulosis of large intestine without perforation or abscess without bleeding
CPT/HCPCS: 88305-TC